=== PATIENT | female | born 1955 | race African-American/Black ===

== ENCOUNTER 2021-10-14 11:51 | Outpatient (CLI) | payer MEDICARE | END 2021-10-14 11:52 | disposition home or self-care (01) | LOC: NAV RAD 11:51 | PROVIDERS: ATTEND Neurological Surgery | DX: M47.26 Other spondylosis with radiculopathy, lumbar region (principal); M43.16 Spondylolisthesis, lumbar region; M41.9 Scoliosis, unspecified; Z98.890 Other specified postprocedural states | CPT/HCPCS: 72120 ==